=== PATIENT | female | born 2000 | race Caucasian/White ===

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

== ENCOUNTER 2021-07-02 09:47 | Emergency (ER) | payer OTHER, SELFPAY ==
[2021-07-02 09:56] VITALS: BP 124/73; PULSE 115; RESP 16; TEMP 36.9; O2SAT 99
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
== END 2021-07-02 10:35 | disposition home or self-care (01) ==
PROVIDERS: Emergency Provider Nurse Practitioner
DX: H57.89 Other specified disorders of eye and adnexa (principal)
CPT/HCPCS: 99213; A9270; G0463